=== PATIENT | female | born 2000 | race Caucasian/White ===

== ENCOUNTER 2021-03-09 08:45 | Outpatient (RCR) | payer BC, MEDICAID, SELFPAY ==
[2021-02-18 11:56] VITALS: BMI 17.4
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
--- NOTE | 2021-02-18 14:28 | PC.NURSE ---
Case opened in treatment team
--- NOTE | 2021-02-18 14:57 | HO.PS.ADMBH ---
[facility] Date of Service: 02/18/21 Chief Complaint: Depression Sources of Information: patient interviewed, chart reviewed and crisis/core team assessment reviewed HPI Guardianship: No Medical Problems Affecting Mental Status: No Narrative: Ms. Brown is a 20-year-old single female, referred to [facility] by [facility] as a step-down from inpatient unit. She had been admitted due to an impulsive OD with prescribed medications. Patient reports having mood instability, impulsivity, and frequent binge drinking episodes. She reports that she 1st experienced symptoms of depression as a teenager, although she began cutting at age 11. She explains that when she is under stress, she sometimes resorts to cutting. She states that she knows this is not a healthy coping skill, and she is hoping to replace this with something that is more helpful. At approximately around ages [age] she saw a therapist and began taking antidepressant medications. Reports past medication trials of Lexapro, Effexor. She states that she was able to function very well after staring medication in high school, but has since had continued episodes of mood dysregulation while in college. She is currently a senior, with a major in hebrew and education. She is currently taking time off from school in order to address her mental health needs. She was raised by both parents, and has a younger brother. She met all developmental milestones as expected. She describes her father as struggling with alcohol, and her mother having anxiety. She felt that her parents were in validating towards her as she was growing up. She does describe her family as supportive at this time. She has a boyfriend of 3 years, and describes her relationship with him as supportive. She currently lives with 6 friends, and states concern due to ?partying? in the house, and her ability to remain abstinent from alcohol going forward. She describes episodes of episodes of hypomania with periods of time where she experienced very little sleep, distractibility, risk taking behaviors, increased alcohol consumption, flight of ideas, increased energy, feeling great. She stated that her boyfriend and friends noticed changes in her behavior during these episodes. She reports she has recently stopped drinking, and that her last drink was on February 02, just prior to her presentation at [facility] ED. she was admitted from 02/02/2021 through 02/12/2021. She denies any suicidal ideation at this time. She hopes to develop and learn how to use skills to help manage her mood instability and anxiety safely. Past Psychiatric History: SI attempt by OD as teen, and again 2 weeks ago. IPLOC at [facility] 02/02/21 - 02/12/21. Outpatient providers as teen. [facility] upcoming initial provider appt, therapist appt. Medical Evaluation Reviewed: No (none available at this time. ) COUNTS INCLUDE 234 BEDS AT THE [facility] Narrative: denies any medical concerns at this time. Family History: Father: alcohol use disorder(in early sobriety), depression, past SI. Maternal grandfather: alcohol use disorder. Both grandmothers: depression. Social History: Raised by both parents, has younger brother. Currently a senior at [employer]. Currently on leave from school. Lives with 6 roommates. Has long-term boyfriend, describes as supportive. Substance History: Alcohol use disorder, hx of binge drinking - blackouts. Recently started naltrexone oral, 50mg daily. Trauma History: None reported. Diagnostics Vital Signs (24Hr): Body Mass Index 17.4 Meds/Allergies Allergies Allergies Allergy/AdvReac Type Severity Reaction Status Date / Time lamotrigine [From Lamictal] Allergy Rash Verified 02/18/21 12:56 Mental Status Exam Mental Status Exam Narrative: Well developed, well nourished female, in NAD. Well groomed, appropriately dressed for age and occasion/weather. Patient Appearance: Well Grooomed and Appropriate Patient Orientation: Person, Place, Time and Situation Level of Consciousness: Awake, Appropriate and Alert Patient Behavior: Appropriate, Cooperative and Good Eye Contact Mood Description: Appropriate and Anxious Affect Description: Appropriate and Anxious Patient Cognition Impaired: No Ability to Follow Directions: Excellent Speech Pattern: Clear, Appropriate, Spontaneous Speech and Coherent Memory Description: Intact Hallucinations: None Delusions: Not Present Thought Process: Intact Thought Content: positive for Intact Depressive Symptoms: Increased Anxiety, Increased Fatigue and Low Self Esteem Judgement: Fair Telehealth Telehealth Location of provider rendering services: practice address Location of patient: address on file Patient Identification confirmed using: Name, : Yes Telehealth method: video Patient verbally consented to treatment: Yes Patient verbally consented to billing insurance company: Yes Patient informed of any privacy concerns related to visit: Yes Time spent with patient (mins): 45 Assessment & Plan Assessment & Plan (1) Bipolar II disorder: Status: Acute Code(s): F31.81 - Bipolar II disorder Assessment and Plan: Client reports that she was started with Lamictal a Colon Karis. She reports that she developed a rash, and that once discharged from hospital she went to see her primary care provider. Her PCP discontinued the Lamictal, and started her with valproic acid, 250 mg, 3 times daily. She stated that she started this medication yesterday. We discussed this medication in detail, including risk of defects. She reports that she has effective control in place, and that she will discuss potential of switching to another medication when she sees her outpatient prescriber for 1st time next week. She does feel that the Wellbutrin is helping tremendously with depressive symptoms. (2) Generalized anxiety disorder: Status: Acute Code(s): F41.1 - Generalized anxiety disorder Assessment and Plan: Client expressed overall anxiety, states that she feels stable today, but that she is apprehensive that she may have another mood swing, and become incapacitated again. We discussed current medication regimen, and other options going forward. She is also hoping to gain effective coping skills, which will in turn lessen her anxiety. She also reports that taking an current leave of absence from school is helping reduce some anxiety symptoms at this time. (3) Alcohol dependence, uncomplicated: Status: Acute Code(s): F10.20 - Alcohol dependence, uncomplicated Assessment and Plan: Client is newly in remission of alcohol use, with last use on February 02. She reports that she was started with naltrexone while in [facility]. She states that it is helping relieve cravings to drink. She expressed concern that she lives with 6 roommates, and that there will be drinking in the house this upcoming weekend. Relapse prevention techniques were discussed. Client was encouraged to reach out to support programs such as existing 12 step and other types of recovery groups that meet on or near [facility]. She was also provided with other resources for online groups. We also discussed possibility of switching to Vivitrol. She stated that she would consider doing this, as she knows it would help prevent her from being able to stop the oral naltrexone when she wishes to drink again. Assessment and Plan: 1. Continue with current medications as prescribed. 2. Follow-up as per protocol. 3. Client is considering referral to [facility] for Vivitrol. Patient educated on: diagnosis, medication risk/benefits, substance abuse and therapeutic strategies Informed Consent: understands Reason for continued partial hosp. stay Substantial Risk for: inability to function and med/psych decompensation Certification I certify that partial hospital treatment is medically necessary due to the symptoms and problems resulting from the patient's mental illness and the failure to treat the patient at the partial hospital level of care would likely result in the patient requiring inpatient psychiatric care which could not be prevented at a less intensive level of care.
--- NOTE | 2021-02-24 09:28 | PC.NURSE ---
I called and left a message with the client to call re did not show up for program this morning.
--- NOTE | 2021-02-25 12:42 | HO.PHPPROGNO ---
Subjective Subjective Date of Service: 02/25/21 Reason For Visit: Depression Guardianship: No Medical Problems Affecting Mental Status: No Interim History: Fide reports that she woke up this am feeling anxious, but feels a little better now . States that she does not crave alcohol on a daily basis, and only takes a naltrexone when she has cravings. She is seeing her new provider next Monday. She states she is not sure if her anxiety is her actually starting to have some hypomanic symptoms, as a friend told her this could be possible. She states she has only been sleeping about 4 hours past few nights, and feels that she is talking more rapidly. Denies any thoughts of suicidal ideation, although cutting is a big coping skill of mine, and I have thought about it lately . Denies any cutting at this time. Medication Compliance: Yes Side effects from medications: No Attending Groups: Yes Review of Systems Acute medical concerns: No Medical Review of Systems: changed Review of Systems: Reports poor sleep over the past several days, feeling more anxious at times. Review of Systems Review of Systems Yes all other systems are reviewed and are negative Constitutional: Reports difficulty sleeping Reports Normal hearing present Reports Normal hearing present Psychiatric: Reports anxiety and Reports suicidal ideation (thoughts of cutting as way to cope, no plan or intent) Mental Status Exam Mental Status Exam Narrative: Well developed, well nourished female, in NAD. No involuntary movements noted, motor activity calm, posture within normal limits. And ambulation not observed. Patient Appearance: Well Grooomed and Appropriate Patient Orientation: Person, Place, Time and Situation Level of Consciousness: Awake, Appropriate and Alert Patient Behavior: Appropriate, Cooperative and Good Eye Contact Mood Description: Appropriate, Anxious and Labile (reports she has been experiencing rapid cycling .) Affect Description: Calm, Appropriate and Anxious Patient Cognition Impaired: No Ability to Follow Directions: Excellent Speech Pattern: Clear, Appropriate, Spontaneous Speech and Coherent Memory Description: Intact Hallucinations: None Delusions: Not Present Thought Process: Intact, Goal Oriented and Linear Thought Content: positive for Intact, positive for Goal Oriented and positive for Linear Depressive Symptoms: Increased Anxiety, Difficulty Sleeping, Loss of Int. in Activity and Increased Fatigue Judgement: Fair Diagnostics Vital Signs (24Hr): Body Mass Index 17.4 Assessment & Plan Assessment & Plan (1) Bipolar II disorder: Status: Acute Code(s): F31.81 - Bipolar II disorder Assessment and Plan: Client reports decreased sleep, increased anxiety. Questions as to whether she may be entering a hypomania. Denies any distractibility, grandiosity, flight of ideas, increased goal-directed activities, pressured speech, thoughtlessness, or engagement in risky behaviors. Does report that a friend told her she was talking fast, and that she spent more than usual at the grocery store this week. Reports past few days she has been sleeping approximately 4-5 hours per night, rather than her usual 7-9 hours per night. Denies any type of suicidal ideation at this time. Reports she has had thoughts of cutting recently, as this has been a coping skill for her. States she is utilizing other coping skills learned in [facility] at the moment, and is abstaining from cutting behaviors. No safety concern at this time. We discussed current medications, including possibility of increasing Depakote, or adding at adjunctive med. She wishes to remain on Depakote and Wellbutrin at this time, has initial appointment with psychiatric provider next Monday. ordered for tomorrow a.m., including Depakote level, LFT's, , TSH, CBC with platelets. Client has been asked to abstain from taking morning dose of Depakote tomorrow until after labs. She stated she understood. (2) Generalized anxiety disorder: Status: Acute Code(s): F41.1 - Generalized anxiety disorder Assessment and Plan: Reports feeling increased anxiety this a.m. but it has subsided. (3) Alcohol dependence, uncomplicated: Status: Acute Code(s): F10.20 - Alcohol dependence, uncomplicated Assessment and Plan: Reports she continues to abstain from use of alcohol, states she has chosen to utilize naltrexone only on days she feels she is craving or will be around people that are drinking. Assessment and Plan: 1. Labs ordered for tomorrow am. 2. Continue with current medications as prescribed, will consider increase in Depakote after review of lab results. 3. Follow-up as per protocol, sooner if warranted. Patient educated on: diagnosis, medication risk/benefits, substance abuse and therapeutic strategies Informed Consent: understands Reason for contiued partial hosp. stay Substantial Risk for: inability to function and med/psych decompensation Certification I certify that partial hospital treatment is medically necessary due to the symptoms and problems resulting from the patient's mental illness and the failure to treat the patient at the partial hospital level of care would likely result in the patient requiring inpatient psychiatric care which could not be prevented at a less intensive level of care. I spent minutes with the patient and/or on the patient floor today, greater than?50% of which was spent counseling/coordinating care. Discharge Plan Discharge Attending provider: Yfn Roberts Medications: No Action divalproex [Depakote] 250 mg Tablet,Delayed Release (Dr/Ec) 250 mg PO TID RF: 0 naltrexone 50 mg Tablet 50 mg PO BEDTIME RF: 0 thiamine HCl (vitamin B1) 100 mg Tablet 100 mg PO DAILY RF: 0 bupropion HCl 100 mg Tablet Sustained-Release 12 Hr 100 mg PO BID RF: 0 nicotine (polacrilex) 4 mg Gum 4 mg BUCCAL Q2H RF: 0 folic acid 1 mg Tablet 1 mg PO DAILY RF: 0 melatonin 5 mg Tablet 5 mg PO BEDTIME PRN (Reason: Insomnia) RF: 0 multivitamin Tablet 1 tab PO DAILY RF: 0 Telehealth Telehealth Location of provider rendering services: practice address Location of patient: address on file Patient Identification confirmed using: Name, : Yes Telehealth method: video Patient verbally consented to treatment: Yes Patient verbally consented to billing insurance company: Yes Patient informed of any privacy concerns related to visit: Yes Time spent with patient (mins): 15
--- NOTE | 2021-03-03 13:06 | P.PNPSP_ITS ---
Subjective Subjective Date of Service: 03/03/21 Reason For Visit: Depression Guardianship: No Medical Problems Affecting Mental Status: No Interim History: Fide reports feeling really good today . She says she has not obtained ordered lab work, as she has a fear of needles, and says she passes out whenever she gets bloodwork. States mood continues on a cycle, not stable . No SI, HI, AH, VH. No safety concern. Reports she has continued to abstain from alcohol use. Medication Compliance: Yes Side effects from medications: No Attending Groups: Yes Review of Systems Acute medical concerns: No Medical Review of Systems: unchanged Review of Systems Review of Systems Yes all other systems are reviewed and are negative Constitutional: Reports no additional constitutional complaints Mental Status Exam Mental Status Exam Narrative: Well-developed, well-nourished female, in NAD. Appears stated age. Dressed appropriately for age and occasion. It is alert and oriented x4. No involuntary movements noted, motor activity calm, posture within normal limits. Good eye contact. [place] in behavior were calm and cooperative. Speech fluent, fully articulate, unimpaired, normal rate and volume. Mood and affect congruent, with somewhat anxious, depressed. No extreme lability or constriction noted. Thought process and associations goal directed, linear. Thought content normal, future oriented. No evidence of any type of delusional thoughts or hallucinations, Client did not appear to be responding to any type of internal stimuli. No SI, HI. Cognition and memory appear intact. Client appears to be reliable historian. Judgment and insight fair. Ambulation not observed. Diagnostics Vital Signs (24Hr): Body Mass Index 17.4 Assessment & Plan Assessment & Plan (1) Bipolar II disorder: Status: Acute Code(s): F31.81 - Bipolar II disorder Assessment and Plan: Client reports feeling that her mood is on a cycle, and that she is not stabilized yet. Discussed medications, including Depakote. Client was educated regarding use of Depakote, including lab work needed in order to assess therapeutic levels. She reports that she does not like getting lab work done, and that she passes out when she gets it done. We discussed other medication options. She is allergic to Lamictal. She also has appointment later on today with her new outpatient provider. We discussed options such as adding an atypical antipsychotic for mood stabilization rather than Depakote. She stated that she would discuss this with her outpatient provider. Denies any type of thought of harm to self or others at this time, no safety concern. (2) Generalized anxiety disorder: Status: Acute Code(s): F41.1 - Generalized anxiety disorder Assessment and Plan: Client reports that she feels her anxiety is under control today, and although anxious, no reports of increased anxiety. States that she is having a better day today. (3) Alcohol dependence, uncomplicated: Status: Acute Code(s): F10.20 - Alcohol dependence, uncomplicated Assessment and Plan: Client reports that she continues to abstain from alcohol. Does not report any type of cravings at this time. Assessment and Plan: 1. Continue with current medications today. 2. Patient meeting with new outpatient provider / prescriber later today, asked to contacted this office with any medication changes. 3. Follow-up as per protocol. Patient educated on: diagnosis, medication risk/benefits, substance abuse and therapeutic strategies Informed Consent: understands Reason for contiued partial hosp. stay Substantial Risk for: inability to function and med/psych decompensation Certification I certify that partial hospital treatment is medically necessary due to the symptoms and problems resulting from the patient's mental illness and the failure to treat the patient at the partial hospital level of care would likely result in the patient requiring inpatient psychiatric care which could not be prevented at a less intensive level of care. I spent minutes with the patient and/or on the patient floor today, greater than?50% of which was spent counseling/coordinating care. Discharge Plan Discharge Attending provider: Yfn Roberts Medications: No Action divalproex [Depakote] 250 mg Tablet,Delayed Release (Dr/Ec) 250 mg PO TID RF: 0 naltrexone 50 mg Tablet 50 mg PO BEDTIME RF: 0 thiamine HCl (vitamin B1) 100 mg Tablet 100 mg PO DAILY RF: 0 bupropion HCl 100 mg Tablet Sustained-Release 12 Hr 100 mg PO BID RF: 0 nicotine (polacrilex) 4 mg Gum 4 mg BUCCAL Q2H RF: 0 folic acid 1 mg Tablet 1 mg PO DAILY RF: 0 melatonin 5 mg Tablet 5 mg PO BEDTIME PRN (Reason: Insomnia) RF: 0 multivitamin Tablet 1 tab PO DAILY RF: 0 Telehealth Telehealth Location of provider rendering services: practice address Location of patient: address on file Patient Identification confirmed using: Name, : Yes Telehealth method: video Patient verbally consented to treatment: Yes Patient verbally consented to billing insurance company: Yes Patient informed of any privacy concerns related to visit: Yes Time spent with patient (mins): 15
--- NOTE | 2021-03-08 15:30 | P.PNPSP_ITS ---
Subjective Subjective Date of Service: 03/08/21 Reason For Visit: Depression Guardianship: No Medical Problems Affecting Mental Status: No Interim History: Fide reports that her new provider appointment went well last week, and the provider made no medication changes. She reports that she feels well today, with stabilized mood. Tomorrow is her last day in partial, and she reports that the groups have helped her, but that she feels ready to discharge. No other concerns at this time. Medication Compliance: Yes Side effects from medications: No Attending Groups: Yes Review of Systems Acute medical concerns: No Medical Review of Systems: unchanged Mental Status Exam Mental Status Exam Narrative: Well-developed, well-nourished female, in no apparent distress. Sitting up, fully attentive during encounter. Alert and oriented x4. Eye contact within normal limits. No involuntary movements noted, motor activity calm, posture within normal limits. [place] in behavior were common cooperative. Speech articulate, unimpaired, normal rate and volume. Client fully attentive during encounter. Memory and cognition grossly intact. Mood and affect stable, no lability or constriction of affect noted. Thought process and associations goal-directed, linear. Thought content normal, future oriented. No evidence of any type of delusional thoughts or hallucinations noted or reported, client did not appear to be responding to any type of internal stimuli. No SI, no HI. Client appears to be a reliable historian. Judgment and insight appear intact at this time. Ambulation not observed. Diagnostics Vital Signs (24Hr): Body Mass Index 17.4 Assessment & Plan Assessment & Plan (1) Bipolar II disorder: Status: Acute Code(s): F31.81 - Bipolar II disorder Assessment and Plan: Client reports she feels her mood has stabilized with current medications. She has met with her outpatient provider once, and will continue working with her regarding medications going forward. She denies any type of thought of harm to self or others, no safety concern. (2) Alcohol dependence, uncomplicated: Status: Acute Code(s): F10.20 - Alcohol dependence, uncomplicated Assessment and Plan: Client reports she continues with abstinence from alcohol. Does not report any type of cravings at this time. (3) Generalized anxiety disorder: Status: Acute Code(s): F41.1 - Generalized anxiety disorder Assessment and Plan: Client reports decreased anxiety, states that she ?feels pretty stable right now ?. Assessment and Plan: 1. Client appears stable to discharge tomorrow from [facility]. 2. Continue with current meds as prescribed. 3. Client will follow up with outpatient providers going forward. Patient educated on: diagnosis, medication risk/benefits, substance abuse and therapeutic strategies Informed Consent: understands Reason for contiued partial hosp. stay Substantial Risk for: stable for discharge Certification I certify that partial hospital treatment is medically necessary due to the symptoms and problems resulting from the patient's mental illness and the failure to treat the patient at the partial hospital level of care would likely result in the patient requiring inpatient psychiatric care which could not be prevented at a less intensive level of care. I spent minutes with the patient and/or on the patient floor today, greater than?50% of which was spent counseling/coordinating care. Discharge Plan Discharge Attending provider: Yfn Roberts Medications: No Action divalproex [Depakote] 250 mg Tablet,Delayed Release (Dr/Ec) 250 mg PO TID RF: 0 naltrexone 50 mg Tablet 50 mg PO BEDTIME RF: 0 thiamine HCl (vitamin B1) 100 mg Tablet 100 mg PO DAILY RF: 0 bupropion HCl 100 mg Tablet Sustained-Release 12 Hr 100 mg PO BID RF: 0 nicotine (polacrilex) 4 mg Gum 4 mg BUCCAL Q2H RF: 0 folic acid 1 mg Tablet 1 mg PO DAILY RF: 0 melatonin 5 mg Tablet 5 mg PO BEDTIME PRN (Reason: Insomnia) RF: 0 multivitamin Tablet 1 tab PO DAILY RF: 0 Stand Alone Forms: Patient Portal Discharge page Telehealth Telehealth Location of provider rendering services: practice address Location of patient: address on file Patient Identification confirmed using: Name, : Yes Telehealth method: video Patient verbally consented to treatment: Yes Patient verbally consented to billing insurance company: Yes Patient informed of any privacy concerns related to visit: Yes Time spent with patient (mins): 15
--- NOTE | 2021-03-09 12:56 | PC.NURSE ---
Patient is scheduled to discharge for the program today. Spoke with patient and reviewed patient medications with patient. Reports taking them as prescribed. Medication Education provided. Patient reports she has a prescriber appointment at [facility] on April 06, 2021. Stated she had an appointment with her PCP recently and reports she asked her PCP Dr Saleh if they could prescribe her current medications until her prescriber appointment on April [address] Saleh agreed to do this. Patient denied SI, no safety concerns. Reports feeling, pretty good about discharge however stated she feels a little nervous as well.
== END 2021-03-10 07:12 | disposition home or self-care (01) ==
LOC: HO.PHPA 08:45
PROVIDERS: Visit Provider Psychiatry & Neurology Psychiatry
DX: F31.81 Bipolar II disorder (principal); F41.1 Generalized anxiety disorder; F10.20 Alcohol dependence, uncomplicated; Z79.899 Other long term (current) drug therapy
CPT/HCPCS: 90853

== ENCOUNTER 2021-08-02 15:03 | Emergency (ER) | payer OTHER, SELFPAY ==
--- NOTE | ~2021-08-02 | CT_ITS ---
EXAMINATION: CT HEAD WITHOUT CONTRAST CLINICAL INFORMATION: Headache. Nausea. COMPARISON: None TECHNIQUE: Contiguous axial imaging was performed from the skull base to vertex without intravenous administration of contrast. Coronal and sagittal reformatted images are performed at CT scanner This CT examination was performed using dose optimization techniques as appropriate, variously including the following: *Automated exposure control *Adjustment of mA and/or kV according to patient size (this includes techniques or standardized protocols for targeted exams where dose is matched to indication/reason for exam; i.e. extremities or head) *Use of iterative reconstruction technique DLP: 583 mGy-cm FINDINGS: There is no evidence of acute intracranial hemorrhage or territorial infarction. No abnormal mass effect or midline shift is seen. [place] to white matter differentiation is well preserved. No extra-axial fluid collections are identified. The ventricles are normal in size. There is no abnormal attenuation within the brain parenchyma. The osseous structures and soft tissues are normal. The mastoid air cells and visualized portions of the paranasal sinuses are well aerated. CT/CT head/brain wo con IMPRESSION: No acute intracranial pathology.
[2021-08-02 16:19] VITALS: BP 114/76; PULSE 73; RESP 16; TEMP 36.6; O2SAT 100; BMI 17.4
--- NOTE | 2021-08-02 16:57 | ED.HEATRA ---
HPI - Head Injury General Chief complaint: Head Injury Stated complaint: Head inj Time Seen by Provider: 08/02/21 16:25 Source: patient Mode of arrival: ambulatory Limitations: no limitations History of Present Illness HPI Narrative: 20-year-old female with a history of bipolar disease, anxiety here with reports of head strike which occurred at work. 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 Patient reports since the head strike she has had headache, nausea and dizziness. Patient denies any loss of consciousness during the time of the injury. She was seen at work [facility] and referred into the emergency department for further evaluation. Patient denies any previous history of head injuries or concussions. No anticoagulation Related Data Home Medications Medication Instructions Recorded Confirmed bupropion HCl 100 mg tablet,12 hr 100 mg PO BID 02/18/21 02/18/21 sustained-release divalproex 250 mg tablet,delayed 250 mg PO TID 02/18/21 02/18/21 release (Depakote) folic acid 1 mg tablet 1 mg PO DAILY 02/18/21 02/18/21 melatonin 5 mg tablet 5 mg PO BEDTIME PRN 02/18/21 02/18/21 multivitamin 1 tab PO DAILY 02/18/21 02/18/21 naltrexone 50 mg tablet 50 mg PO BEDTIME 02/18/21 02/18/21 nicotine (polacrilex) 4 mg gum 4 mg BUCCAL Q2H 02/18/21 02/18/21 thiamine HCl (vitamin B1) 100 mg 100 mg PO DAILY 02/18/21 02/18/21 tablet Allergies Allergy/AdvReac Type Severity Reaction Status Date / Time lamotrigine [From Lamictal] Allergy Rash Verified 08/02/21 16:23 Review of Systems Review of Systems: Yes all other systems are reviewed and are negative Constitutional: Constitutional: Reports no additional constitutional complaints, Denies body ache(s), Denies chills, Denies fever(s), Reports headache(s) and Denies weakness Eyes: Eyes: Reports no additional eye complaints and Denies change in vision ENT: Reports system reviewed and no additional complaints, except as documented, Reports dizziness, Reports headache(s), Denies nasal congestion, Denies nasal discharge and Denies neck pain Cardiovascular: Cardiovascular: Reports no additional cardiovascular complaints, Denies chest pain, Denies leg edema and Denies dyspnea Respiratory: Respiratory: Reports no additional respiratory complaints, Denies cough and Denies dyspnea Gastrointestinal: Gastrointestinal: Reports no additional gastrointestinal complaints, Denies abdominal pain, Denies diarrhea, Reports nausea and Denies vomiting Genitourinary: Genitourinary: Reports no additional female genitourinary complaints and Denies urinary incontinence Musculoskeletal: Musculoskeletal: Reports no additional musculoskeletal complaints, Denies back pain, Denies arthralgias, Denies joint swelling, Denies neck pain, Denies numbness and Denies tingling Integumentary/Breasts: Skin/Breast: Reports system reviewed and no additional complaints, except as docu and Denies rash Neurologic: Reports system reviewed and no additional complaints, except as documented, Denies Abnormal speech present, Reports dizziness, Reports headache(s), Denies numbness, Denies tingling and Denies weakness PMFSH Past Medical History Attestation statement: The following information was validated with the patient. Source: old records reviewed and nursing notes reviewed Social History Social History Household Members: None Patient Tobacco Use Status: Current everyday Tobacco user Tobacco use type: Smokeless Tobacco Advance Directives: No Advance Directives Information Provided: No Patient : No Physical Exam Vital Signs: Vital Signs: Last Vital Signs Temp 97.8 F 08/02/21 16:19 Pulse 73 08/02/21 16:19 Resp 16 08/02/21 16:19 BP 114/76 08/02/21 16:19 Pulse Ox 100 08/02/21 16:19 BMI result Body Mass Index 17.4 Const: General: cooperative, healthy appearing, comfortable and no acute distress Orientation/consciousness: patient oriented x3 Limitations: no limitations HEENT: Head: Yes normal to inspection, No Shafer's sign and No raccoon eyes Ears: hearing grossly normal bilaterally and TM's normal bilaterally General nose exam: Normal external nose present Face and sinus: Yes normal facial exam Mouth: Normal oral and palatal mucosa present Throat: Yes posterior oropharynx normal Eyes: General: appearance normal, both eyes and all related structures Pupils: Equal, round and reactive pupils present Neck: Other: No cervical midline tenderness, step-offs or deformities Neck: Yes normal visual inspection, Yes full ROM, Yes no lymphadenopathy and Yes no meningeal signs Chest: Chest palpation & inspection: normal inspection of the chest Resp: Effort & Inspection: normal respiratory effort Auscultation: clear to auscultation bilaterally Cardio: Rate: regular rate Rhythm: regular rhythm Peripheral pulses: Peripheral pulses 2+ throughout GI: Inspection: Yes normal to inspection Palpation (GI): Soft to palpation and nontender Auscultation: normal bowel sounds Back/Spine/Pelvis: Thoracic/Lumbar Spine: thoracic and lumbar spine normal to inspection Skin: General skin exam: no rashes or lesions noted Neuro: General: patient oriented x3, no meningeal signs, no focal motor deficits and normal sensation to monofilament Cranial nerves: Yes CN's II-XII intact bilaterally, Yes Equal, round and reactive pupils present, Yes Bilaterally intact EOM present, Yes Nystagmus not present, Yes Normal facial strength present and Yes Midline tongue present Cognition (Neuro): normal cognition Speech: No Abnormal speech present Gait exam (Neuro): Normal gait present Motor exam (neuro): 5/5 motor strength present throughout Sensory Exam: Normal double simultaneous stimulation for sensation Extrem: General: Yes normal to inspection Course Course Course Narrative: 20-year-old female here after head strike which occurred at work this afternoon. Since the head strike she has had headache, nausea and dizziness. Seen at [facility] referred into the emergency department for further evaluation. Normal neurological exam. Will check CT head 1840-CT head shows no acute finding. Consider concussion. Patient tolerating p.o. fluids. Plan for discharge home with follow-up with work connection. We discussed limiting screen time and brain rest. Reviewed worrisome signs and symptoms of when to return to the emergency department. Comfortable discharge home. MDM - Head Injury MDM Narrative Medical decision making narrative: ICH, concussion Medical Records Attestation: I reviewed the patient's medical records. Lab Data Attestation: I reviewed the patient's lab results. Imaging Data CT scan - head: Attestation: I personally reviewed and interpreted this imaging study as follows: Radiologist's impression: [address] [address] [address] Scan Report Signed Patient: Fide Brown MR#: [id number] : 2000 Acct:[id number] Age/Sex: 20 / F ADM Date: 08/02/21 Loc: HO.ED Attending Dr: Ordering Physician: Maday Roberts NP Date of Service: 08/02/21 Procedure(s): CT head/brain wo con Accession Number(s): [id number] cc: Maday Roberts NP~ EXAMINATION: CT HEAD WITHOUT CONTRAST CLINICAL INFORMATION: Headache. Nausea.? COMPARISON: None TECHNIQUE: Contiguous axial imaging was performed from the skull base to vertex without intravenous administration of contrast. Coronal and sagittal reformatted images are performed at CT scanner This CT examination was performed using dose optimization techniques as appropriate, variously including the following: *Automated exposure control *Adjustment of mA and/or kV according to patient size (this includes techniques or standardized protocols for targeted exams where dose is matched to indication/reason for exam; i.e. extremities or head) *Use of iterative reconstruction technique DLP: 583 mGy-cm FINDINGS: There is no evidence of acute intracranial hemorrhage or territorial infarction. No abnormal mass effect or midline shift is seen. [place] to white matter differentiation is well preserved. No extra-axial fluid collections are identified. The ventricles are normal in size. There is no abnormal attenuation within the brain parenchyma. The osseous structures and soft tissues are normal. The mastoid air cells and visualized portions of the paranasal sinuses are well aerated. ? CT/CT head/brain wo con IMPRESSION: No acute intracranial pathology. Discharge Plan Discharge Clinical Impression: Concussion without loss of consciousness Patient Disposition: Home, Self-Care Instructions: Concussion (ED) Additional Instructions: Your CT scan today was normal Please follow-up with work connection Take Motrin or Tylenol for pain as needed Limit screen time. Get plenty of rest Prescriptions: No Action divalproex [Depakote] 250 mg Tablet,Delayed Release (Dr/Ec) 250 mg PO TID 0RF Label Comments: Patient stated her provider stopped the lamictal d/t rash and started Depakote 250 mg TID verified with patient and patient's prescription bottle. naltrexone 50 mg Tablet 50 mg PO BEDTIME 0RF thiamine HCl (vitamin B1) 100 mg Tablet 100 mg PO DAILY 0RF bupropion HCl 100 mg Tablet Sustained-Release 12 Hr 100 mg PO BID 0RF nicotine (polacrilex) 4 mg Gum 4 mg BUCCAL Q2H 0RF folic acid 1 mg Tablet 1 mg PO DAILY 0RF melatonin 5 mg Tablet 5 mg PO BEDTIME PRN (Reason: Insomnia) 0RF multivitamin Tablet 1 tab PO DAILY 0RF Stand Alone Forms: Work/School Release Interventions: ED Discharge Assessment Last Done: 08/02/21 18:35 Discharge Date/Time: 08/02/21 18:36
== END 2021-08-02 18:36 | disposition home or self-care (01) ==
PROVIDERS: Emergency Provider Emergency Medicine
DX: S06.0X0A Concussion without loss of consciousness, initial encounter (principal); W21.05XA Struck by basketball, initial encounter; F17.200 Nicotine dependence, unspecified, uncomplicated; Y93.89 Activity, other specified; Y92.219 Unspecified school as the place of occurrence of the external cause; Y99.0 Civilian activity done for income or pay
CPT/HCPCS: 70450; 99283; 99284

== ENCOUNTER → 2021-08-05 09:16 | Outpatient (BNVA) | payer OTHER, SELFPAY | PROVIDERS: Visit Provider Physician Assistant | DX: S09.90XA Unspecified injury of head, initial encounter (principal); X58.XXXA Exposure to other specified factors, initial encounter | CPT/HCPCS: 99204 ==